=== PATIENT | female | born 1940 | race Caucasian/White ===

== ENCOUNTER 2018-10-30 13:41 | Outpatient (CLI) | payer MEDICARE | END 2018-10-30 23:59 | disposition home or self-care (01) | LOC: CARD DIAG 13:41 | PROVIDERS: ATTEND Family Medicine | DX: I08.3 Combined rheumatic disorders of mitral, aortic and tricuspid valves (principal) | CPT/HCPCS: 93306 ==

== ENCOUNTER 2018-12-29 14:39 | Day surgery (SDC) | payer MEDICARE ==
[2018-12-24 09:20] LABS: BASOPHILS # (AUTO) 0.1 X10'3 (0-0.2); BASOPHILS % (AUTO) 0.6 % (0-1); EOSINOPHILS # (AUTO) 0.3 X10'3 (0-0.9); EOSINOPHILS % (AUTO) 3.4 % (0-6); HEMATOCRIT 37.9 % (35.0-45.0); HEMOGLOBIN 12.6 g/dl (12.0-16.0); LYMPHOCYTES # (AUTO) 3.5 X10'3 (1.1-4.8); LYMPHOCYTES % (AUTO) 37.5 % (21-51); MEAN CORPUSCULAR HEMOGLOBIN 29.8 PG (27.0-31.0); MEAN CORPUSCULAR HGB CONC 33.2 g/dL (33.0-36.5); MEAN CORPUSCULAR VOLUME 89.7 FL (78-98); MEAN PLATELET VOLUME 7.3 FL (7.4-10.4); MONOCYTES # (AUTO) 0.8 X10'3 (0-0.9); MONOCYTES % (AUTO) 8.3 % (2-12); NEUTROPHILS # (AUTO) 4.7 X10'3 (1.8-7.7); NEUTROPHILS % (AUTO) 50.2 % (42-75); PLATELET COUNT 375 X10'3 (140-440); RED BLOOD COUNT 4.23 X10'6 (4.20-5.60); RED CELL DISTRIBUTION WIDTH 13.7 % (11.5-14.5); WHITE BLOOD COUNT 9.3 X10'3 (4.5-11.0)
[2018-12-24 09:33] LABS: ALBUMIN 3.7 G/DL (3.4-5.0); ANION GAP 6 (8-16); BLOOD UREA NITROGEN 17 MG/DL (7-18); BUN/CREATININE RATIO 25.4 (6.6-38.0); CALCIUM 9.3 MG/DL (8.5-10.1); CHLORIDE 106 MMOL/L (99-107); CHOLESTEROL 176 MG/DL (0-200); CREATININE 0.67 MG/DL (0.40-0.90); GLUCOSE 99 MG/DL (70-104); HDL CHOLESTEROL 59 MG/DL (35-60); LDL CHOLESTEROL 106 MG/DL (50-100); PARTIAL THROMBOPLASTIN TIME 31 SECONDS (22-32); POTASSIUM 4.1 MMOL/L (3.5-5.1); SODIUM 138 MMOL/L (135-145); TOTAL CARBON DIOXIDE 26.4 MMOL/L (24-32); TRIGLYCERIDES 85 MG/DL (20-135); eGFR 85 ML/MIN
[2018-12-29] VITALS (7 sets, daily range): BP systolic 106–139; BP diastolic 54–86
[~2018-12-29] VITALS: Ht 160 cm; Wt 78.6 kg
[2018-12-29] MEDS ORDERED: diphenhydrAMINE 25mg capsule PO PRN (15:05)
[2018-12-29] MEDS ORDERED: LORazepam 0.5 MG tablet PO PRN (15:05)
[2018-12-29] MEDS ORDERED: normal saline 1,000 ML IV SCH (15:05)
[2018-12-29] MEDS ORDERED: THIA100T66 PO (15:33)
[2018-12-29] MEDS ORDERED: SIMV10TA6 PO (15:33)
[2018-12-29] MEDS ORDERED: CALC600T12 PO (15:33)
[2018-12-29] MEDS ORDERED: GINK120C PO (15:33)
[2018-12-29] MEDS ORDERED: PREBIOTIC FIBER PO (15:33)
[2018-12-29] MEDS ORDERED: MULT-1141 PO (15:33)
[2018-12-29] MEDS ORDERED: ASPI81TA52 PO (15:33)
[2018-12-29] MEDS ORDERED: ALEN40TA2 PO (15:33)
[2018-12-29] MEDS ORDERED: GLUC100017 PO (15:33)
[2018-12-29] MEDS ORDERED: TEMA30CA5 PO (15:33)
[2018-12-29] MEDS ORDERED: LIDOcaine 1% (10mg/ml)w/preservative injection 20ml MDV ONE (16:31)
[2018-12-29] MEDS ORDERED: fentaNYL/PF 50MCG/1 ML 2ML syringe ONE (16:31)
[2018-12-29] MEDS ORDERED: midazolam 2 mg/2 ml injection ONE (16:31)
[2018-12-29] MEDS ORDERED: iohexol 350MG/ML 100ml bottle IV ONE (16:31)
[2018-12-29] MEDS ORDERED: OXAZEpam 15mg capsule PO PRN (19:45)
[2018-12-29] MEDS ORDERED: proCHLORperazine 10 MG/2 ml inj IV PRN (19:45)
[2018-12-29] MEDS ORDERED: ondansetron/PF 4mg/2ml inj IV PRN (19:45)
== END 2018-12-29 21:10 | disposition home or self-care (01) ==
LOC: SSTAY O 14:39
PROVIDERS: ATTEND Internal Medicine Interventional Cardiology
DX: I25.10 Atherosclerotic heart disease of native coronary artery without angina pectoris (principal); I10 Essential (primary) hypertension; I27.20 Pulmonary hypertension, unspecified; I35.0 Nonrheumatic aortic (valve) stenosis; M81.0 Age-related osteoporosis without current pathological fracture; G47.00 Insomnia, unspecified; Z90.710 Acquired absence of both cervix and uterus; Z98.49 Cataract extraction status, unspecified eye; Z82.49 Family history of ischemic heart disease and other diseases of the circulatory system; Z79.899 Other long term (current) drug therapy; Z87.891 Personal history of nicotine dependence; Z98.890 Other specified postprocedural states
CPT/HCPCS: 36415; 80048; 80061; 85025; 85610; 85730; 93005; 93458; 99152; 99153; A6257; C1769; J1644; J2001; J2250; J3010; J7030; Q0163; Q9967; A4620

== ENCOUNTER 2021-09-13 19:45 | Inpatient (IN) | payer MEDICARE ==
[~2021-09-13] VITALS: Ht 160 cm; Wt 81.2 kg
[~2021-09-13 19:45] MED LIST: ALEN40TA2 PO; ASPI81TA52 PO; CALC600T35 PO; GINK120C PO; GLUC100017 PO; MULT-1141 PO; PREBIOTIC FIBER PO; SIMV10TA98 PO; TEMA30CA5 PO; THIA100T66 PO
--- NOTE | 2021-09-13 21:20 | NUR ---
Pt is a Direct admission from [facility] , to be admitted to room PCU 3014. I have received report from YADI Choi and had the opportunity to ask questions and assume patient care. Pt Lourdes buckner on board.
[2021-09-13 21:30] VITALS: BP 136/55
--- NOTE | 2021-09-13 21:30 | NUR ---
Pt arrived to 3014B, brought in by ambulance crew. On admission, pt is stable, VSS, Afebrile, placed on Tele, bed in lowest position, side rails up x2, POC discussed with pt, verbalized understanding. RLQ stoma pink, moist , with clear urine to drainage bag, by gravity.
[2021-09-13] MEDS ORDERED: ondansetron/PF 4mg/2ml inj IV PRN (23:35)
[2021-09-13] MEDS ORDERED: morphine 2 MG/ML inj. syringe IV PRN ×2 (23:35)
[2021-09-13] MEDS ORDERED: magnesium hydroxide 30ml (MOM) UD suspension PO PRN (23:35)
[2021-09-13] MEDS ORDERED: mag hydrox/Alum hydrox/simeth 30ml oral suspension PO PRN (23:35)
[2021-09-13] MEDS ORDERED: acetaminophen 325mg tablet PO PRN ×2 (23:35)
[2021-09-13] MEDS ORDERED: diphenhydrAMINE 50 mg/ml inj IV PRN (23:35)
[2021-09-13] MEDS ORDERED: bisacodyl 10mg suppository rectal RC PRN (23:35)
[2021-09-13] MEDS ORDERED: acetaminophen 650mg rectal suppository RC PRN (23:35)
[2021-09-13] MEDS ORDERED: ondansetron 4mg rapidly disintigrating tab PO PRN (23:35)
[2021-09-13] MEDS ORDERED: HYDROcodone/acetaminophen 5mg/325mg tablet PO PRN (23:35)
[2021-09-13] MEDS ORDERED: diphenhydrAMINE 25mg capsule PO PRN (23:35)
[2021-09-13] MEDS: HYDROcodone/acetaminophen 10/325mg tab PO PRN (23:58)
[2021-09-13] MEDS: heparin, porcine 5000 units/ml vial SQ SCH (23:59)
[2021-09-13] MEDS: temazepam 15mg capsule PO PRN (23:59)
[2021-09-14] MEDS: heparin, porcine 5000 units/ml vial SQ SCH
[2021-09-14] MEDS: normal saline 1000ml 1,000 ML IV SCH (00:27)
--- NOTE | 2021-09-14 00:45 | NUR ---
Blood drawn peripherally, and sent to lab, for ordered blood works, including Blood culture x1,and Lactic acid. Lab will draw 2nd set of blood culture with am lab. MRSA swab sent.
[2021-09-14 01:32] LABS: BASOPHILS # (AUTO) 0.1 X10'3 (0-0.2); BASOPHILS % (AUTO) 0.4 % (0-1); EOSINOPHILS # (AUTO) 0.2 X10'3 (0-0.9); EOSINOPHILS % (AUTO) 1.3 % (0-6); HEMATOCRIT 24.9 % (35.0-45.0); HEMOGLOBIN 8.2 g/dl (12.0-16.0); LYMPHOCYTES # (AUTO) 2.8 X10'3 (1.1-4.8); LYMPHOCYTES % (AUTO) 18.3 % (21-51); MEAN CORPUSCULAR HEMOGLOBIN 28.9 PG (27.0-31.0); MEAN CORPUSCULAR HGB CONC 32.8 g/dL (33.0-36.5); MEAN PLATELET VOLUME 7.8 FL (7.4-10.4); MONOCYTES # (AUTO) 1.5 X10'3 (0-0.9); MONOCYTES % (AUTO) 9.9 % (2-12); NEUTROPHILS # (AUTO) 10.7 X10'3 (1.8-7.7); NEUTROPHILS % (AUTO) 70.1 % (42-75); PLATELET COUNT 392 X10'3 (140-440); RED BLOOD COUNT 2.83 X10'6 (4.20-5.60); WHITE BLOOD COUNT 15.3 X10'3 (4.5-11.0)
[2021-09-14 02:00] VITALS: BP 136/86
[2021-09-14 02:02] LABS: HEMOGLOBIN A1C 5.6 % (4.5-6.2)
[2021-09-14 02:53] LABS: PLATELET ESTIMATE NORMAL; TOTAL CELLS COUNTED 100
[2021-09-14 06:00] VITALS: BP 114/55
--- NOTE | 2021-09-14 06:40 | NUR ---
Problems reprioritized. Patient report given, questions answered & plan of care reviewed with YADI Flores.
[2021-09-14 06:49] LABS: APTT 31 SECONDS (22-32)
[2021-09-14 07:37] LABS: ALANINE AMINOTRANSFERASE 29 U/L (12-78); ALBUMIN 2.1 G/DL (3.4-5.0); ALBUMIN/GLOBULIN RATIO 0.6 (1.1-1.5); ALKALINE PHOSPHATASE 51 IU/L (46-116); ANION GAP 12 (8-16); ASPARTATE AMINO TRANSFERASE 31 U/L (10-37); BILIRUBIN,TOTAL 0.2 MG/DL (0.1-1.0); BLOOD UREA NITROGEN 12 MG/DL (7-18); BUN/CREATININE RATIO 19.7 (6.6-38.0); CALCIUM 8.5 MG/DL (8.5-10.1); CHLORIDE 105 MMOL/L (99-107); CHOL/HDL RATIO 3.2 (0.00-4.99); CHOLESTEROL 136 MG/DL (0-200); CREATININE 0.61 MG/DL (0.40-0.90); GLUCOSE 114 MG/DL (70-104); HDL CHOLESTEROL 43 MG/DL (35-60); LDL CHOLESTEROL 67 MG/DL (50-100); LIPASE 52 U/L (73-393); MAGNESIUM 2.1 MG/DL (1.5-2.4); PHOSPHORUS 3.8 MG/DL (2.3-4.5); POTASSIUM 3.5 MMOL/L (3.5-5.1); SODIUM 143 MMOL/L (135-145); TOTAL CARBON DIOXIDE 26.4 MMOL/L (24-32); TOTAL PROTEIN 5.7 G/DL (6.4-8.2); TRIGLYCERIDES 160 MG/DL (20-135); eGFR > 90 ML/MIN
[2021-09-14] MEDS ORDERED: furosemide 20 MG/2 ML vial IV SCH (08:00)
[2021-09-14] MEDS ORDERED: heparin, porcine 5000 units/ml vial SQ SCH (08:00)
[2021-09-14] MEDS: aspirin 81mg, enteric-coated 1 TAB TABLET.DR PO SCH (09:39)
[2021-09-14] MEDS: pantoprazole 40mg Tablet.DR PO SCH (09:41)
[2021-09-14] MEDS: docusate sod 100mg capsule PO SCH ×2 (09:41→20:31)
[2021-09-14] MEDS: cefTRIAXone 1g/NS 100ml IVPB 100 ML IV SCH (09:46)
[2021-09-14 11:00] VITALS: BP 103/50
[2021-09-14 15:00] VITALS: BP 113/49
[2021-09-14] MEDS ORDERED: ENOX40DI8 SQ (15:07)
[2021-09-14] MEDS ORDERED: HYDR-3964 PO (15:07)
[2021-09-14] MEDS: HYDROcodone/acetaminophen 10/325mg tab PO PRN (15:54)
[2021-09-14] MEDS ORDERED: cefTRIAXone 1g/NS 100ml IVPB 100 ML IV ONE (16:35)
[2021-09-14 18:00] VITALS: BP 113/61
--- NOTE | 2021-09-14 18:09 | NUR ---
Patient in room PCU 3014. I have received report from YADI Flores and had the opportunity to ask questions and assume patient care.
[2021-09-14] MEDS: temazepam 15mg capsule PO PRN (20:31)
[2021-09-14] MEDS: furosemide 20 MG/2 ML vial IV SCH (20:32)
[2021-09-14] MEDS: metoprolol tartrate 12.5mg (1/2 tablet) PO SCH (20:34)
[2021-09-14 22:00] VITALS: BP 121/72
[2021-09-15] MEDS: HYDROcodone/acetaminophen 10/325mg tab PO PRN ×3 (01:30→19:57)
[2021-09-15] MEDS: normal saline 1000ml 1,000 ML IV SCH (01:32)
[2021-09-15 02:00] VITALS: BP 117/59
[2021-09-15 06:00] VITALS: BP 120/50
--- NOTE | 2021-09-15 06:13 | NUR ---
Problems reprioritized. Patient report given, questions answered & plan of care reviewed with YADI Flores.
[2021-09-15 07:25] LABS: BASOPHILS # (AUTO) 0.1 X10'3 (0-0.2); BASOPHILS % (AUTO) 0.4 % (0-1); EOSINOPHILS # (AUTO) 0.3 X10'3 (0-0.9); EOSINOPHILS % (AUTO) 2.3 % (0-6); HEMATOCRIT 24.6 % (35.0-45.0); LYMPHOCYTES # (AUTO) 3.4 X10'3 (1.1-4.8); LYMPHOCYTES % (AUTO) 25.7 % (21-51); MEAN CORPUSCULAR HEMOGLOBIN 28.9 PG (27.0-31.0); MEAN CORPUSCULAR HGB CONC 32.6 g/dL (33.0-36.5); MEAN CORPUSCULAR VOLUME 88.6 FL (78-98); MEAN PLATELET VOLUME 7.1 FL (7.4-10.4); MONOCYTES # (AUTO) 1.3 X10'3 (0-0.9); NEUTROPHILS # (AUTO) 8.2 X10'3 (1.8-7.7); NEUTROPHILS % (AUTO) 61.6 % (42-75); PLATELET COUNT 436 X10'3 (140-440); RED BLOOD COUNT 2.78 X10'6 (4.20-5.60); RED CELL DISTRIBUTION WIDTH 15.4 % (11.5-14.5); WHITE BLOOD COUNT 13.3 X10'3 (4.5-11.0)
[2021-09-15 07:40] LABS: ALANINE AMINOTRANSFERASE 29 U/L (12-78); ALBUMIN/GLOBULIN RATIO 0.5 (1.1-1.5); ALKALINE PHOSPHATASE 45 IU/L (46-116); ANION GAP 9 (8-16); ASPARTATE AMINO TRANSFERASE 29 U/L (10-37); BILIRUBIN,TOTAL 0.2 MG/DL (0.1-1.0); BLOOD UREA NITROGEN 11 MG/DL (7-18); BUN/CREATININE RATIO 19.3 (6.6-38.0); CALCIUM 8.2 MG/DL (8.5-10.1); CHLORIDE 104 MMOL/L (99-107); CREATININE 0.57 MG/DL (0.40-0.90); GLUCOSE 108 MG/DL (70-104); POTASSIUM 3.5 MMOL/L (3.5-5.1); SODIUM 142 MMOL/L (135-145); TOTAL CARBON DIOXIDE 28.6 MMOL/L (24-32); TOTAL PROTEIN 5.7 G/DL (6.4-8.2); eGFR > 90 ML/MIN
[2021-09-15] MEDS ORDERED: cefTRIAXone 1g/NS 100ml IVPB 100 ML IV SCH (08:00)
[2021-09-15] MEDS: cefTRIAXone 1g/NS 100ml IVPB 100 ML IV SCH (08:24)
[2021-09-15] MEDS: furosemide 20 MG/2 ML vial IV SCH ×2 (08:26→19:58)
[2021-09-15] MEDS: aspirin 81mg, enteric-coated 1 TAB TABLET.DR PO SCH (08:27)
[2021-09-15] MEDS: metoprolol tartrate 12.5mg (1/2 tablet) PO SCH ×2 (08:28→19:55)
[2021-09-15] MEDS: docusate sod 100mg capsule PO SCH ×2 (08:30→19:54)
[2021-09-15] MEDS: pantoprazole 40mg Tablet.DR PO SCH (08:30)
[2021-09-15 11:00] VITALS: BP 113/57
[2021-09-15 15:00] VITALS: BP 98/44
[2021-09-15] MEDS ORDERED: HYDROcodone/acetaminophen 5mg/325mg tablet PO PRN (17:20)
[2021-09-15 18:00] VITALS: BP 114/64
[2021-09-15] MEDS ORDERED: atorvastatin 10mg tablet PO SCH (21:00)
[2021-09-15] MEDS ORDERED: temazepam 15mg capsule PO SCH (21:00)
[2021-09-15 22:00] VITALS: BP 108/60
[2021-09-16 02:00] VITALS: BP 103/49
[2021-09-16 06:00] VITALS: BP 128/74
[2021-09-16 07:00] LABS: BASOPHILS % (AUTO) 0.3 % (0-1); EOSINOPHILS # (AUTO) 0.3 X10'3 (0-0.9); EOSINOPHILS % (AUTO) 2.1 % (0-6); HEMATOCRIT 25.2 % (35.0-45.0); HEMOGLOBIN 8.4 g/dl (12.0-16.0); LYMPHOCYTES # (AUTO) 2.6 X10'3 (1.1-4.8); LYMPHOCYTES % (AUTO) 18.9 % (21-51); MEAN CORPUSCULAR HEMOGLOBIN 29.5 PG (27.0-31.0); MEAN CORPUSCULAR HGB CONC 33.4 g/dL (33.0-36.5); MEAN CORPUSCULAR VOLUME 88.2 FL (78-98); MEAN PLATELET VOLUME 7.2 FL (7.4-10.4); MONOCYTES # (AUTO) 1.2 X10'3 (0-0.9); MONOCYTES % (AUTO) 8.7 % (2-12); NEUTROPHILS # (AUTO) 9.5 X10'3 (1.8-7.7); PLATELET COUNT 461 X10'3 (140-440); RED BLOOD COUNT 2.85 X10'6 (4.20-5.60); RED CELL DISTRIBUTION WIDTH 15.5 % (11.5-14.5); WHITE BLOOD COUNT 13.6 X10'3 (4.5-11.0)
[2021-09-16 07:24] LABS: ALANINE AMINOTRANSFERASE 26 U/L (12-78); ALBUMIN 2.2 G/DL (3.4-5.0); ALBUMIN/GLOBULIN RATIO 0.6 (1.1-1.5); ALKALINE PHOSPHATASE 42 IU/L (46-116); ANION GAP 10 (8-16); ASPARTATE AMINO TRANSFERASE 22 U/L (10-37); BILIRUBIN,TOTAL 0.2 MG/DL (0.1-1.0); BLOOD UREA NITROGEN 12 MG/DL (7-18); BUN/CREATININE RATIO 19.7 (6.6-38.0); CALCIUM 8.7 MG/DL (8.5-10.1); CHLORIDE 103 MMOL/L (99-107); CREATININE 0.61 MG/DL (0.40-0.90); GLUCOSE 110 MG/DL (70-104); POTASSIUM 3.8 MMOL/L (3.5-5.1); SODIUM 142 MMOL/L (135-145); TOTAL CARBON DIOXIDE 28.9 MMOL/L (24-32); TOTAL PROTEIN 5.9 G/DL (6.4-8.2); eGFR > 90 ML/MIN
[2021-09-16] MEDS ORDERED: aspirin 81mg, enteric-coated 1 TAB TABLET.DR PO SCH (08:00)
[2021-09-16] MEDS: pantoprazole 40mg Tablet.DR PO SCH (08:27)
[2021-09-16] MEDS: docusate sod 100mg capsule PO SCH (08:27)
[2021-09-16] MEDS: aspirin 81mg, enteric-coated 1 TAB TABLET.DR PO SCH (08:27)
[2021-09-16] MEDS: cefTRIAXone 1g/NS 100ml IVPB 100 ML IV SCH (08:27)
[2021-09-16] MEDS: metoprolol tartrate 12.5mg (1/2 tablet) PO SCH (08:28)
[2021-09-16] MEDS: furosemide 20 MG/2 ML vial IV SCH (08:28)
[2021-09-16 11:00] VITALS: BP 99/59
[2021-09-16] MEDS ORDERED: LOP12.5T PO (11:14)
[2021-09-16] MEDS ORDERED: POTA10TA37 PO (11:14)
[2021-09-16] MEDS ORDERED: FURO-150 PO (11:14)
[2021-09-16] MEDS: HYDROcodone/acetaminophen 10/325mg tab PO PRN (13:30)
== END 2021-09-16 14:04 | disposition home or self-care (01) | DRG 282 ==
LOC: PCU 3S 21:36 → UNDOADMIN 21:36 → PCU 3S 23:39
PROVIDERS: ADMIT Family Medicine; ATTEND Family Medicine
DX: I50.33 Acute on chronic diastolic (congestive) heart failure (principal); I21.A1 Myocardial infarction type 2; D72.829 Elevated white blood cell count, unspecified; E78.5 Hyperlipidemia, unspecified; I27.20 Pulmonary hypertension, unspecified; I07.1 Rheumatic tricuspid insufficiency; Z85.51 Personal history of malignant neoplasm of bladder; Z87.891 Personal history of nicotine dependence; Z93.2 Ileostomy status; Z79.82 Long term (current) use of aspirin; Z93.6 Other artificial openings of urinary tract status; Z95.2 Presence of prosthetic heart valve; Z79.899 Other long term (current) drug therapy
CPT/HCPCS: 36415; 71045; 80053; 80061; 83036; 83605; 83690; 83735; 83880; 84100; 84443; 84484; 85007; 85025; 85610; 85730; 87040; 87081; 93005; 93306; 97116; 97161; 97530; G0378; J0696; J1644; J1940; J2270; J7030; Q0163